=== PATIENT | male | born 1975 | race Caucasian/White ===

== ENCOUNTER 2024-10-17 06:54 | Emergency (ER) | payer OTHER ==
[~2024-10-17] VITALS: Ht 182.9 cm; Wt 81.6 kg
[2024-10-17 07:00] VITALS: BP 130/71; TEMP 98.3; O2SAT 98
[2024-10-17] MEDS ORDERED: AMOX-430 PO (07:06)
== END 2024-10-17 07:12 | disposition home or self-care (01) ==
LOC: ER 06:58
DX: S81.832A Puncture wound without foreign body, left lower leg, initial encounter (principal); W55.01XA Bitten by cat, initial encounter; Y93.89 Activity, other specified; Y92.89 Other specified places as the place of occurrence of the external cause; Y99.8 Other external cause status